=== PATIENT | male | born 1940 | race Caucasian/White ===

== ENCOUNTER 2017-08-10 20:49 | Emergency (ER) | payer BC, OTHER ==
[~2017-08-10] VITALS: Ht 160 cm; Wt 81.6 kg
[2017-08-10 21:00] VITALS: TEMP 36.7; Ht 160 cm; Wt 81.6 kg
--- NOTE | 2017-08-10 21:27 | EMERGENCY ROOM VISIT NOTE ---
History Report prepared by Rayray: Martínez Thompson Under the Supervision of: Dr. Sang Moss M.D. First contact with patient: 21:09 Chief Complaint: OTHER COMPLAINT Stated Complaint: MISSING PERSON- POLICE BROUGHT IN TO CHECK HIM OUT History of Present Illness The patient is a 77 year old male who presents to the Emergency Room with complaints of chronic low back pain. The patient states he has a history of sciatic, and it is acting up. He reports his symptoms are present in his lower back and radiate to his lower left leg. The patient notes he still thinks he is in [place]. Police state the patient was found on the side of the road. They report the patient ran out of gas and someone had picked him up. Police note someone bought the patient a can of gasoline for his car. They state the patient was found stumbling while trying to pour the gasoline into his tank. Police report they looked the patient up and discovered he was a missing person from [place]. They note the patient was waling to the right and wanted to make sure he was not having a stroke. Police state the patient was very disoriented. HPI limited secondary to the patient's altered mental status. Source of History: patient, police History Limited By: AMS Review of Systems ROS limited secondary to the patient's altered mental status. Past Medical & Surgical Medical Problems: (1) Sciatica Family History Patient reports no known family medical history. Social History Smoking Status: Never Smoker Marital Status: Housing Status: lives with family Occupation Status: retired Physical Exam Vital Signs Date Time Temp Pulse Resp B/P (MAP) Pulse Ox O2 Delivery O2 Flow Rate FiO2 08/11/17 01:35 83 18 154/71 100 08/10/17 23:00 80 16 158/73 98 Room Air 08/10/17 21:00 36.7 95 18 181/85 97 Room Air Physical Exam GENERAL: Awake, alert, well-appearing, in no distress. Pleasantly confused. Odor of gasoline on his clothes and hands. HENT: Normocephalic, atraumatic. Oropharynx unremarkable. EYES: Normal conjunctiva. Sclera non-icteric. NECK: Supple. No nuchal rigidity. FROM. No JVD. RESPIRATORY: Clear to auscultation. CARDIAC: Regular rate, normal rhythm. Extremities warm and well perfused. Pulses equal. ABDOMEN: Soft, non-distended. No tenderness to palpation. No rebound or guarding. No masses. RECTAL: Deferred. MUSCULOSKELETAL: Chest examination reveals no tenderness. The back is symmetrical on inspection without obvious abnormality. There is no CVA tenderness to palpation. No joint edema. LOWER EXTREMITIES: Calves are equal size bilaterally and non-tender. No edema. No discoloration. NEURO: Alert to self. Positive straight left leg raise. Normal nose to finger. Normal sensorium. No sensory or motor deficits noted. SKIN: No rash or jaundice noted. Medical Decision & Procedures ER Provider Diagnostic Interpretation: Radiology results as stated below per my review and radiologist interpretation: HEAD WITHOUT CONTRAST (CT) CT DOSE: 537.48 mGy.cm HISTORY: Mental status change ams TECHNIQUE: Multiaxial CT images of the head were performed without the use of intravenous contrast. A dose lowering technique was utilized adhering to the principles of ALARA. Comparison: None. Findings: The paranasal sinuses and mastoid air cells are clear. Findings of moderate cerebellar as well as cerebral atrophy. Chronic areas of pre-existing encephalomalacia. Moderate chronic small vessel change. Impression: No acute intracranial abnormality. Atrophy and age-related change. The above report was generated using voice recognition software. It may contain grammatical, syntax or spelling errors. Electronically signed by: Korey Zamora M.D. 08/10/2017 10:39 PM Dictated Date/Time: 08/10/2017 10:37 PM CHEST ONE VIEW PORTABLE CLINICAL HISTORY: ABDOMINAL PAIN/GI pain COMPARISON STUDY: No previous studies for comparison. FINDINGS: The bones soft tissues and hemidiaphragms are normal. The cardiomediastinal silhouette is normal. The lungs are clear. The pulmonary vasculature is normal. IMPRESSION: Negative chest. The above report was generated using voice recognition software. It may contain grammatical, syntax or spelling errors. Electronically signed by: Korey Zamora M.D. 08/10/2017 9:45 PM Dictated Date/Time: 08/10/2017 9:44 PM Laboratory Results 08/10/17 21:45 Red Blood Count 3.94, Mean Corpuscular Volume 82.2, Mean Corpuscular Hemoglobin 26.6, Mean Corpuscular Hemoglobin Concent 32.4, Mean Platelet Volume 9.8, Neutrophils (%) (Auto) 72.4, Lymphocytes (%) (Auto) 13.0, Monocytes (%) (Auto) 13.2, Eosinophils (%) (Auto) 0.8, Basophils (%) (Auto) 0.3, Neutrophils # (Auto ) 7.43, Lymphocytes # (Auto) 1.34, Monocytes # (Auto) 1.36, Eosinophils # (Auto ) 0.08, Basophils # (Auto) 0.03 08/10/17 21:45 Test 08/10/17 21:45 08/11/17 01:40 White Blood Count 10.27 K/uL (4.8-10.8) Red Blood Count 3.94 M/uL (4.7-6.1) Hemoglobin 10.5 g/dL (14.0-18.0) Hematocrit 32.4 % (42-52) Mean Corpuscular Volume 82.2 fL (80-100) Mean Corpuscular Hemoglobin 26.6 pg (25-34) Mean Corpuscular Hemoglobin Concent 32.4 g/dl (32-36) Platelet Count 417 K/uL (130-400) Mean Platelet Volume 9.8 fL (7.4-10.4) Neutrophils (%) (Auto) 72.4 % Lymphocytes (%) (Auto) 13.0 % Monocytes (%) (Auto) 13.2 % Eosinophils (%) (Auto) 0.8 % Basophils (%) (Auto) 0.3 % Neutrophils # (Auto) 7.43 K/uL (1.4-6.5) Lymphocytes # (Auto) 1.34 K/uL (1.2-3.4) Monocytes # (Auto) 1.36 K/uL (0.11-0.59) Eosinophils # (Auto) 0.08 K/uL (0-0.5) Basophils # (Auto) 0.03 K/uL (0-0.2) RDW Standard Deviation 48.4 fL (36.4-46.3) RDW Coefficient of Variation 16.1 % (11.5-14.5) Immature Granulocyte % (Auto) 0.3 % Immature Granulocyte # (Auto) 0.03 K/uL (0.00-0.02) Anion Gap 9.0 mmol/L (3-11) Est Creatinine Clear Calc Drug Dose 54.3 ml/min Estimated GFR () 74.9 Estimated GFR (Non- 64.6 BUN/Creatinine Ratio 11.8 (10-20) Calcium Level 9.0 mg/dl (8.5-10.1) Magnesium Level 2.1 mg/dl (1.8-2.4) Total Bilirubin 1.4 mg/dl (0.2-1) Direct Bilirubin 0.3 mg/dl (0-0.2) Aspartate Amino Transf (AST/SGOT) 22 U/L (15-37) Alanine Aminotransferase (ALT/SGPT) 25 U/L (12-78) Alkaline Phosphatase 90 U/L (45-117) Troponin I < 0.015 ng/ml (0-0.045) Total Protein 8.1 gm/dl (6.4-8.2) Albumin 3.7 gm/dl (3.4-5.0) Lipase 228 U/L (73-393) Ethyl Alcohol mg/dL < 3.0 mg/dl (0-3) Bedside Glucose 191 mg/dl (70-99) Laboratory results reviewed by me ECG Per My Interpretation Indication: altered mental status Rate (beats per minute): 86 Rhythm: sinus with SA Findings: other (normal axis) Comparison ECG Date: no prior available ED Course 2115: The patient was evaluated in room C04. A complete history and physical exam was performed. 2313: I reevaluated the patient and discussed his test results. He verbalized agreement with the treatment plan and discharge instruction. He is ready for discharge when his family member arrives. Medical Decision I reviewed the patient's past medical history, medications, and the nursing notes as described above. Differential diagnosis: Etiologies such as metabolic, infection, hypoglycemia, electrolyte abnormalities , cardiac sources, intracerebral event, toxicologic, neurologic, as well as others were entertained. The patient is a 77-year-old gentleman with a past medical history of dementia who presents emergency department [place] and was identified that the patient with a missing person from [place] per hpi. On arrival the patient is well-appearing, pleasantly confused oriented to self. He has an odor of gasoline on his clothes and hands from spilling gasoline when he ran out of gas. Patient reports chronic symptoms of lower back pain and left-sided radiculopathy. Otherwise, the patient is neuro intact including finger to nose. No ataxia with ambulation but slight limp due to his sciatica. Labs unremarkable. Chest x-ray negative. CT head negative. Case management and nursing in contact with patient's family who were driving from [place] to pick him up. Son arrived to pickler helper patient. Confirms that he is a his recent baseline confusion, which has been evolving over the past year and they are planning to have him see his pcp for this. He reports that he initially got lost going to the corner store but this has become an increasing problem. He confirms that they will restrict his access to vehicles and not permit him to drive and will ensure he is watched. Hard copy of today's studies provided. Findings and plan for follow-up reviewed with patient and his son. Patient and son agreeable and d /c'd per discharge instructions. Medication Reconcilliation Current Medication List: was personally reviewed by me Blood Pressure Screening Patient's blood pressure: Elevated blood pressure Blood pressure disposition: Referred to PCP Impression Primary Impression: Dementia Scribe Attestation The scribe's documentation has been prepared under my direction and personally reviewed by me in its entirety. I confirm that the note above accurately reflects all work, treatment, procedures, and medical decision making performed by me. Departure Information Dispostion Home / Self-Care Referrals No Doctor, Assigned (PCP) Patient Instructions Dementia, My [facility] Additional Instructions Please follow up with your primary care physician in the next 1-3 days for re- evaluation. [place] were [place] unaware that you had left [place]. Your confusion is most likely related to your dementia. Otherwise, your exam, lab results, chest xray, and CT scan of your brain did not show any emergent findings at this time. Return to the emergency department for worsening symptoms as described in the accompanying instructions.
--- NOTE | 2017-08-10 21:46 | DIAGNOSTIC IMAGING REPORT ---
CHEST ONE VIEW PORTABLE CLINICAL HISTORY: ABDOMINAL PAIN/GI pain COMPARISON STUDY: No previous studies for comparison. FINDINGS: The bones soft tissues and hemidiaphragms are normal. The cardiomediastinal silhouette is normal. The lungs are clear. The pulmonary vasculature is normal. IMPRESSION: Negative chest. The above report was generated using voice recognition software. It may contain grammatical, syntax or spelling errors. Electronically signed by: Korey Zamora M.D. 08/10/2017 9:45 PM Dictated Date/Time: 08/10/2017 9:44 PM
[2017-08-10 22:07] LABS: BASO % 0.3 %; BASO ABS # 0.03 K/uL (0-0.2); EOS % 0.8 %; EOS ABS # 0.08 K/uL (0-0.5); HEMATOCRIT 32.4 % (42-52); HEMOGLOBIN 10.5 g/dL (14.0-18.0); IG# 0.03 K/uL (0.00-0.02); LYMPH ABS # 1.34 K/uL (1.2-3.4); MEAN CELL VOLUME 82.2 fL (80-100); MEAN CORPUSCULAR HEMOGLOBIN 26.6 pg (25-34); MEAN CORPUSCULAR HGB CONC 32.4 g/dl (32-36); MEAN PLATELET VOLUME 9.8 fL (7.4-10.4); MONO % 13.2 %; MONO ABS # 1.36 K/uL (0.11-0.59); NEUT % 72.4 %; NEUT ABS # 7.43 K/uL (1.4-6.5); PLATELET COUNT 417 K/uL (130-400); RED CELL DISTRIBUTION WIDTH CV 16.1 % (11.5-14.5); RED CELL DISTRIBUTION WIDTH SD 48.4 fL (36.4-46.3); WHITE BLOOD COUNT 10.27 K/uL (4.8-10.8)
[2017-08-10 22:26] LABS: ALBUMIN 3.7 gm/dl (3.4-5.0); ALT/SGPT 25 U/L (12-78); AST/SGOT 22 U/L (15-37); BLOOD UREA NITROGEN 13 mg/dl (7-18); CARBON DIOXIDE 24 mmol/L (21-32); CREATININE 1.11 mg/dl (0.60-1.40); GLUCOSE 213 mg/dl (70-99); LIPASE 228 U/L (73-393); SODIUM 137 mmol/L (136-145)
[2017-08-10 22:31] LABS: ALKALINE PHOSPHATASE 90 U/L (45-117); TOTAL PROTEIN 8.1 gm/dl (6.4-8.2)
--- NOTE | 2017-08-10 22:41 | DIAGNOSTIC IMAGING REPORT ---
HEAD WITHOUT CONTRAST (CT) CT DOSE: 537.48 mGy.cm HISTORY: Mental status change ams TECHNIQUE: Multiaxial CT images of the head were performed without the use of intravenous contrast. A dose lowering technique was utilized adhering to the principles of ALARA. Comparison: None. Findings: The paranasal sinuses and mastoid air cells are clear. Findings of moderate cerebellar as well as cerebral atrophy. Chronic areas of pre-existing encephalomalacia. Moderate chronic small vessel change. Impression: No acute intracranial abnormality. Atrophy and age-related change. The above report was generated using voice recognition software. It may contain grammatical, syntax or spelling errors. Electronically signed by: Korey Zamora M.D. 08/10/2017 10:39 PM Dictated Date/Time: 08/10/2017 10:37 PM
[2017-08-11 01:35] VITALS: BP 154/71; PULSE 83; O2SAT 100
== END 2017-08-11 01:35 | disposition home or self-care (01) ==
LOC: C.EDB 20:53 → C.EDC 08-11 01:35
DX: R41.0 Disorientation, unspecified (principal); M54.42 Lumbago with sciatica, left side